=== PATIENT | male | born 1970 | race Caucasian/White ===

== ENCOUNTER 2020-03-09 21:41 | Emergency (ER) | payer BC ==
[~2020-03-09] VITALS: Ht 182.9 cm; Wt 90.7 kg
--- NOTE | 2020-03-09 21:58 | NUR ---
BIBS FROM HOME TO ER BED 16. AAOX4. NOT IN RESP DISTRESS. AMBULATORY. CAME IN FOR PRIAPISM. PT REPORTS TAKING TRIMIX 1/2 DOSE, 5 UNIT ON AN INSULIN SYRINGE (DONT KNOW THAT EXACT DOSING) @ 0100. SINCE THEN HIS ERECTION HAS NOT GONE DOWN. PT IS COMPLAINING OF PENILE DISCOMFORT. NO NOTED DISCOLORATION. AWAITING MD FOR [facility]
[2020-03-09] MEDS ORDERED: PHENYLEPHRINE 10 MG/ML VIAL ONE (22:20)
[2020-03-09] MEDS ORDERED: phenytoin SODIUM IV 250 MG/5 ML VIAL IV ONE (22:30)
[2020-03-09] MEDS ORDERED: MORPHINE SULFATE INJ 4 MG/ML DISP.SYRIN IM ONE (22:30)
[2020-03-09] MEDS ORDERED: LIDOCAINE/PRILOCAINE (5GM) 5 GM TUBE TP ONE ×2 (22:34→23:00)
[2020-03-09] MEDS ORDERED: MORPHINE SULFATE INJ 4 MG/ML DISP.SYRIN ONE (22:39)
[2020-03-09] MEDS ORDERED: PHENYLEPHRINE 10 MG/ML VIAL IJ ONE (23:00)
--- NOTE | 2020-03-09 23:51 | NUR ---
Patient discharged to home in stable condition. Written and verbal after care instructions given. Patient verbalizes understanding of instruction. Pt ambulatory with a steady gait
[2020-03-10] VITALS: BP 133/78
== END 2020-03-10 00:01 | disposition home or self-care (01) ==
LOC: ER 21:44
DX: N48.39 Other priapism (principal)
CPT/HCPCS: 54235; 96372; 99284; J2270; J2370